=== PATIENT | female | born 1995 | race Caucasian/White ===

== ENCOUNTER → 2021-09-03 15:00 | Observation (INO) ==
[2021-09-03 14:36] LABS: Bilirubin,Urine Negative (Negative); Blood,Urine Negative (Negative); Clarity,Urine Clear (Clear); Color,Urine Colorless (Yellow); Glucose,Urine (UA) Normal (Normal); Ketones,Urine Negative (Negative); Leukocyte Esterase,Urine Negative (Negative); Nitrite,Urine Negative (Negative); PH,Urine 6.5 pH Units (5.0-8.0); Protein,Urine Negative (Neg-Trace); Specific Gravity,Urine 1.005 (1.010-1.025); Urobilinogen,Urine Normal (Normal)
== END | disposition home or self-care (01) ==
LOC: 1NENULAB
PROVIDERS: ADMIT Obstetrics & Gynecology; ATTEND Obstetrics & Gynecology

== ENCOUNTER 2021-09-19 18:21 | Inpatient (IN) ==
[~2021-09-19 18:21] MED LIST: CeFAZolin 2,000 MG/120 ML BAG IVPB ONE; Famotidine 20 MG/2 ML VIAL IVP ONE; Metoclopramide 10 MG/2 ML VIAL IVP ONE; OXYTOCIN/RINGERS LACTATE 10 UNIT/166.6 ML BAG IVC ONE; Oxytocin 30 UNIT/503 ML BAG IVC SCH; Ringers Solution, Lactated 1,000 ML IVC ONE; Ringers Solution, Lactated 1,000 ML IVC SCH; Ringers Solution, Lactated 1,000 ML ONE
[2021-09-19 18:28] LABS: Red Cell Distribution Width 13.7 % (11.5-14.5)
[2021-09-19 18:30] LABS: Basophils % 0.3 %; Eosinophils % 0.2 %; Hematocrit 45.6 % (35.3-44.9); Hemoglobin 14.7 g/dL (11.5-15.4); Immature Granulocytes % 0.6 % (0-4); Immature Platelets 7.7 % (1.1-6.1); Lymphocytes # 1.2 K/mcL (0.6-4.6); Lymphocytes % 13.6 %; Mean Corpuscular HGB Conc 32.2 g/dL (31.6-35.5); Mean Corpuscular Hemoglobin 29.4 pg (28.0-33.3); Mean Corpuscular Volume 91.2 fL (83.0-100.0); Mean Platelet Volume 10.6 fL (9.4-12.4); Monocytes # 0.4 K/mcL (0.0-1.3); Monocytes % 4.4 %; Platelet Count 122 K/mcL (140-400); Segmented Neutrophils % 80.9 %; White Blood Count 8.6 K/mcL (4.3-11.1)
[2021-09-19 18:37] LABS: Amphetamine Screen,Urine Negative ng/mL (Cutoff=1000); Barbiturate Screen,Urine Negative ng/mL (Cutoff=200); Benzodiazepines Screen,Urine Negative ng/mL (Cutoff=200); Cannabinoid Screen,Urine Negative ng/mL (Cutoff = 50); Cocaine Screen,Urine Negative ng/mL (Cutoff= 300); Opiate Screen,Urine Negative ng/mL (Cutoff=300); Phencyclidine Screen,Urine Negative ng/mL (Cutoff=25)
[2021-09-19] MEDS ORDERED: *HR* Morphine Sulfate/PF 10 MG/10 ML AMPUL ONE (18:50)
[2021-09-19] MEDS ORDERED: Ondansetron 4 MG/2 ML VIAL ONE (18:50)
[2021-09-19] MEDS ORDERED: *HR* Phenylephrine 10 MG/ML VIAL ONE (18:50)
[2021-09-19] MEDS ORDERED: *HR* FentaNYL (PF) 100 MCG/2 ML VIAL ONE (18:50)
[2021-09-19 19:03] LABS: Influenza A PCR Negative (Negative); Influenza B PCR Negative (Negative); Resp. Syncytial Virus PCR Negative (Negative)
[2021-09-19 19:04] LABS: SARS-CoV-2 by PCR (In House) Negative (Negative)
[2021-09-19] MEDS ORDERED: Ringers Solution, Lactated 1,000 ML ONE (19:40)
[2021-09-19] MEDS ORDERED: Acetaminophen IV 1,000 MG/100 ML BAG IVPB ONE (19:41)
[2021-09-19] MEDS ORDERED: Naloxone 0.4 MG/ML INJ IVP PRN (19:42)
[2021-09-19] MEDS ORDERED: Promethazine 6.25 MG in Water for inj. (sterile) 20 ML IVPB PRN (19:42)
[2021-09-19] MEDS ORDERED: *HR* HYDROmorphone PF 0.5 MG/0.5 ML SYRINGE IVP PRN (19:42)
[2021-09-19] MEDS ORDERED: Ketorolac 30 MG/ML VIAL ONE (20:07)
[2021-09-19] MEDS ORDERED: Rho Immune Globulin 1,500 UNIT SYRINGE IM ONE (22:48)
[2021-09-19] MEDS ORDERED: Ondansetron 4 MG/2 ML VIAL IVP PRN (22:48)
[2021-09-19] MEDS ORDERED: Metoclopramide 10 MG/2 ML VIAL IVP PRN (22:48)
[2021-09-19] MEDS: Simethicone 80 MG TAB.CHEW PO SCH (23:19)
[2021-09-20] MEDS ORDERED: Ketorolac 30 MG/ML VIAL IVP ONE (02:07)
[2021-09-20] MEDS: Acetaminophen 325 MG TABLET PO SCH ×3 (03:03→16:25)
[2021-09-20 04:01] LABS: Basophils % 0.3 %; Eosinophils % 0.2 %; Immature Granulocytes % 0.5 % (0-4); Lymphocytes # 1.6 K/mcL (0.6-4.6); Mean Corpuscular HGB Conc 33.4 g/dL (31.6-35.5); Mean Corpuscular Hemoglobin 30.3 pg (28.0-33.3); Mean Corpuscular Volume 90.7 fL (83.0-100.0); Mean Platelet Volume 10.6 fL (9.4-12.4); Monocytes # 0.6 K/mcL (0.0-1.3); Monocytes % 5.6 %; Neutrophils # 8.4 K/mcL (1.6-8.9); Platelet Count 100 K/mcL (140-400); Red Blood Count 3.86 M/mcL (3.82-4.97); Red Cell Distribution Width 13.6 % (11.5-14.5); Segmented Neutrophils % 78.4 %; White Blood Count 10.7 K/mcL (4.3-11.1)
[2021-09-20 04:16] LABS: Hemoglobin 11.7 g/dL (11.5-15.4)
[2021-09-20] MEDS: *HR* Enoxaparin 40 MG/0.4 ML SYRINGE SQ SCH ×2 (07:39→19:47)
[2021-09-20] MEDS: Prenatal Vit/FA 1 EACH TABLET PO SCH (07:40)
[2021-09-20] MEDS: Simethicone 80 MG TAB.CHEW PO SCH ×3 (07:40→19:47)
[2021-09-20] MEDS: *HR* OxyCODONE Immed Rel 5 MG TABLET PO PRN ×3 (08:55→19:47)
[2021-09-20] MEDS: Ibuprofen 600 MG TABLET PO SCH ×2 (10:33→16:25)
[2021-09-20] MEDS ORDERED: Rho Immune Globulin 1,500 UNIT SYRINGE IM ONE (12:00)
[2021-09-20 20:06] VITALS: O2SAT 99
[2021-09-21] MEDS: Acetaminophen 325 MG TABLET PO SCH ×2 (00:20→06:55)
[2021-09-21] MEDS: Ibuprofen 600 MG TABLET PO SCH ×2 (00:21→06:56)
[2021-09-21 07:19] VITALS: BP 106/70; PULSE 93; TEMP 98.2
[2021-09-21] MEDS: Simethicone 80 MG TAB.CHEW PO SCH (09:03)
[2021-09-21] MEDS: *HR* Enoxaparin 40 MG/0.4 ML SYRINGE SQ SCH (09:03)
[2021-09-21] MEDS: Prenatal Vit/FA 1 EACH TABLET PO SCH (09:03)
[2021-09-21] MEDS: *HR* OxyCODONE Immed Rel 5 MG TABLET PO PRN ×2 (11:18→16:38)
[2021-09-21] MEDS ORDERED: Ibuprofen 600 MG TABLET PO SCH (13:00)
[2021-09-21] MEDS ORDERED: Acetaminophen 325 MG TABLET PO SCH (13:00)
== END 2021-09-21 17:00 | disposition home or self-care (01) | DRG 788 ==
LOC: 1NENULAB → 1NENUOBS 22:39
PROVIDERS: ADMIT Obstetrics & Gynecology; ATTEND Obstetrics & Gynecology